=== PATIENT | female | born 2000 | race Two or more races ===

== ENCOUNTER 2024-09-01 12:35 | Outpatient (AMB) | payer OTHER, SELFPAY ==
[2024-09-01 12:40] VITALS: BP 126/76; PULSE 60; BMI 42.7
--- NOTE | 2024-09-01 12:40 | A.OFFVIS_ITS ---
Vital Signs 09/01/24 12:40 Height 5 ft 2 in Weight 233 lb 7.512 oz BMI 42.7 BP 126/76 Blood Pressure Location Lt brachial Position Sitting Pulse 60 Pulse Source Pulse Oximeter Intake Visit Reasons: Arthritis/LM Intake Note: Patient presents for follow up on RA, she states she would like to speak about jaw tightening feeling as if it's locked, and ear aches. Patient would like Enbrel refill. Allergies No Known Allergies Allergy (Verified 09/01/24 12:45) HPI HPI Arthritis/LM: Details: History of TRUDY previously in remission on Enbrel. She has been out of prescription for at least a month. She has had increased joint pains. She is concerned in the last couple of weeks she has noted that she has lost her overbite and there has been a shift in her jaw. She is experiencing pain at the TMJs radiating to her ears. She is able to eat without difficulty. She also has been hearing clicking from her jaw. No other joints are swollen. No recent infections. [facility] Medical History (Updated 09/01/24 @ 13:25 by Jonas Davenport MD) Rheumatoid arthritis Anxiety Surgical History (Updated 09/01/24 @ 12:55 by Antionette Figueroa CMA) No pertinent past surgical history Family History (Updated 09/01/24 @ 12:52 by Antionette Figueroa CMA) Mother Hypertension Diabetes Acute anxiety Review of Systems Const All systems reviewed & are unremarkable except as noted in HPI and below Physical Exam Vital Signs: Last Vital Signs Pulse 60 09/01/24 12:40 BP 126/76 09/01/24 12:40 BMI result Body Mass Index 42.7 Const Other: General: Comfortable CVS: RRR Respiratory: clear to auscultation bilaterally. Good respiratory effort Skin: No lesions seen MSK: Tender to palpate bilateral TMJs without fullness appreciated. No warmth. When patient smiles there is a shift in her jaw with deviation to the right. No synovitis on exam. No tender joints. Good range of motion of upper extremities and lower extremities. Assessment & Plan Assessment & Plan (1) TRUDY (juvenile idiopathic arthritis): Comment: Previously in clinical remission on Enbrel. She has been experiencing worsening bilateral jaw pain with concern for TMJ dislocation based on exam. Since she has been off of DMARD therapy for a month, we will need to consider TMJ arthritis contributing to her symptoms. She agreed to obtaining MRI bilateral TMJs for further evaluation as it will dictate next steps in management of her TMJ pain. Code(s): M08.80 - Other juvenile arthritis, unspecified site Category: Medical Plan: MR bilateral TMJs without contrast Labs for disease and drug monitoring on high-risk medication ordered After lab results are back, we will send prescription for Enbrel to initially to [facility] pharmacy for [place]. she has been previously receiving her Enbrel from [facility] specialty pharmacy (2) Other termite renewal inspector (current) drug therapy: Code(s): Z79.899 - Other termite renewal inspector (current) drug therapy Category: Medical Plan: See above (3) TMJ (dislocation of temporomandibular joint): Comment: Acute onset. Coincidentally she has been off of Enbrel for a month. I am concerned of possible TMJ dislocation based on exam versus TMJ inflammatory arthritis off of DMARD therapy contributing to her symptoms. Code(s): S03.00XA - Dislocation of jaw, unspecified side, initial encounter Category: Medical Plan: MR TMJs bilateral without contrast ordered Orders: Orders Alanine Aminotransferase Today M08.80 - Other juvenile arthritis, unspecified site, Z79.899 - Other snf (current) drug therapy Aspartate Amino Transferase Today M08.80 - Other juvenile arthritis, unspecified site, Z79.899 - Other termite renewal inspector (current) drug therapy Erythrocyte Sedimentation Rate Today M08.80 - Other juvenile arthritis, unspecified site, Z79.899 - Other termite renewal inspector (current) drug therapy Hepatitis B,C Profile Today M08.80 - Other juvenile arthritis, unspecified site, Z79.899 - Other termite renewal inspector (current) drug therapy T Spot TB Today M08.80 - Other juvenile arthritis, unspecified site, Z79.899 - Other snf (current) drug therapy MR TMJ wo con Today M08.80 - Other juvenile arthritis, unspecified site, S03 .00XA - Dislocation of jaw, unspecified side, initial encounter Creatinine Today M08.80 - Other juvenile arthritis, unspecified site, Z79.899 - Other termite renewal inspector (current) drug therapy Complete Blood Count Auto Diff Today M08.80 - Other juvenile arthritis, unspecified site, Z79.899 - Other snf (current) drug therapy Cyclic Citrullinated Peptide Today M08.80 - Other juvenile arthritis, unspecified site, Z79.899 - Other termite renewal inspector (current) drug therapy Rheumatoid Factor Today M08.80 - Other juvenile arthritis, unspecified site, Z79.899 - Other termite renewal inspector (current) drug therapy WALDEMAR Reflex Titer and Pattern Today M08.80 - Other juvenile arthritis, unspecified site, Z79.899 - Other snf (current) drug therapy Coding Level of Care Code Est Pt Level 4 (94198) Complex EM visit Add On G2211 Diagnoses TRUDY (juvenile idiopathic arthritis) M08.80 Other termite renewal inspector (current) drug therapy Z79.899 TMJ (dislocation of temporomandibular joint) S03.00XA
== END 2024-09-01 13:25 | disposition home or self-care (01) ==
LOC: HO.RHES 12:35
PROVIDERS: Visit Provider Internal Medicine Rheumatology
DX: M08.80 Other juvenile arthritis, unspecified site (principal); Z79.899 Other long term (current) drug therapy; S03.00XA Dislocation of jaw, unspecified side, initial encounter
CPT/HCPCS: 99214

== ENCOUNTER → 2024-09-01 12:35 | Outpatient (BNVA) | payer MEDICAID, SELFPAY | PROVIDERS: Visit Provider Internal Medicine Rheumatology | DX: M08.80 Other juvenile arthritis, unspecified site (principal); S03.00XA Dislocation of jaw, unspecified side, initial encounter; X58.XXXA Exposure to other specified factors, initial encounter; Y93.9 Activity, unspecified; Y92.9 Unspecified place or not applicable; Y99.9 Unspecified external cause status; Z79.899 Other long term (current) drug therapy | CPT/HCPCS: 99212 ==

== ENCOUNTER 2024-09-05 15:22 | Outpatient (REF) | payer OTHER, SELFPAY ==
[2024-09-05 15:54] LABS: MANUAL DIFF FLAG NO
[2024-09-05 16:53] LABS: Basophils Percent Auto 0.6 % (0-2); Eosinophils Absolute Auto 0.1 X10*3/uL (0.0-0.4); Eosinophils Percent Auto 2.1 % (0-4); Hematocrit 31.7 % (37.0-47.0); Imm Gran Abs Auto 0.02 X10*3/uL (0.00-0.03); Imm Gran Pct Auto 0.4 % (0.0-0.4); Lymphocytes Absolute Auto 1.8 X10*3/uL (1.2-4.9); Lymphocytes Percent Auto 34.1 % (20-40); Mean Corpuscular HGB Conc 31.5 g/dl (31.0-35.0); Mean Corpuscular Hemoglobin 25.6 pg (27.0-33.0); Mean Corpuscular Volume 81.1 fL (80.0-98.0); Mean Platelet Volume 9.5 fL (9.4-12.3); Monocytes Absolute Auto 0.5 X10*3/uL (0.1-1.2); Neutrophils Absolute Auto 2.8 x10*3/uL (2.0-8.3); Neutrophils Percent Auto 53.8 % (45-73); Platelet Count 365 X10*3/uL (160-400); Red Blood Count 3.91 X10*6/uL (4.20-5.50); Red Cell Distribution Width 13.9 % (11.0-16.0); White Blood Count 5.3 X10*3/uL (4.8-10.8)
[2024-09-05 17:21] LABS: Rheumatoid Factor 45.2 IU/mL (<15.0)
[2024-09-05 17:34] LABS: Alanine Aminotransferase 19 U/L (0-31); Aspartate Amino Transferase 19 U/L (5-31); Estimated Glomerular Filt Rate > 60
[2024-09-05 17:44] LABS: Erythrocyte Sedimentation Rate 19 MM/HR (0-20)
[2024-09-06 08:40] LABS: HBc Num1 0.07 S/CO (0.00-0.79); HBsAGNum1 0.52 S/CO (0.00-0.99); Hepatitis B Core Antibody Nonreactive (Nonreactive); Hepatitis B Surface Antigen Negative (Negative); ~Hepatitis C Antibody Nonreactive (Nonreactive)
[2024-09-06 13:26] LABS: HBS Num2 11.01 mIU/mL (0-7.99); ~Hepatitis B Surface Antibody GRAYZONE (Nonreactive)
[2024-09-08 03:48] LABS: TS Negative Control Passed; TS Panel A 1; TS Panel B 0; TS Positive Control Passed; TSpotTB Negative (Negative)
[2024-09-08 15:03] LABS: Anti Nuclear Antibody Pattern Nuclear, Speckled; Anti Nuclear Antibody Screen POSITIVE (NEGATIVE)
[2024-09-08 16:23] LABS: Cyclic Citrullinated Peptide >250 UNITS
== END 2024-09-05 15:23 | disposition home or self-care (01) ==
LOC: HO.LAB 15:22
PROVIDERS: Visit Provider Internal Medicine Rheumatology
DX: M08.80 Other juvenile arthritis, unspecified site (principal); Z79.899 Other long term (current) drug therapy
CPT/HCPCS: 36415; 82565; 84450; 84460; 85025; 85652; 86038; 86039; 86200; 86431; 86481; 86704; 86706; 86803; 87340

== ENCOUNTER 2025-01-04 14:28 | Outpatient (REF) | payer OTHER, SELFPAY ==
--- OUTSIDE RECORDS SUMMARY | 2025-01-04 17:13 | XMS_ITS | Clinical Summary ---
Author Organization [facility] Address [address] [place] [address] Care Team Providers Care Gas Leak Inspector Helper Name Role Phone Arnoldo Sweeney MD Primary Care Provider [phone] Source Comments PLEASE NOTE, if this patient [...] 50 mg/mL (1 mL) injectionIndicat ions:Juvenile arthritis ([facility]) INJECT 1 ML INTO THE SKIN ONCE A WEEK 4 mL 2 1 Active melatonin 10 mg capIndications:P sychophysiologic al insomnia TAKE 1 TABLET BY MOUTH NIGHTLY AT BEDTIME NEEDED (SLEEP) 30 Capsule 5 2 Active Active Problems Problem Noted Date Diagnosed Date Seasonal allergic rhinitis 01/28/2017 Rheumatoid arthritis involving multiple sites ([facility]) 01/28/2017 Anxiety and depression 01/28/2017 Social History [...] of Treatment Not on file Insurance [facility] Care Teams Gas Leak Inspector Helper Relationship Specialty Start Date End Date Arnoldo Sweeney MD [facility] [place] [address] PCP - General Family Medicine, Physician 11/26/22
--- OUTSIDE RECORDS SUMMARY | 2025-01-04 17:13 | XMS_ITS | Clinical Summary ---
Author Organization [facility] ity Address [address] [place] [address] Care Team Providers Care Inside Account Representative Name Role Phone Patria Griffin MD Primary Care Provider [phone] Surgical History Surgery Date Site/Laterality Comments OTHER SURGICAL HISTORY PROCEDURE: DENIES PREVIOUS SURGERY Medical History Medical History Date Comments JRA (juvenile rheumatoid art hritis) ([facility]) 2010 DX:JRA (juvenile rheumatoid arthritis) ([facility]); COMMENT: on med H/O rheumatoid arthritis 2011 [...] and 18 administered; COMMENT: series completed at [facility] pediatric[facility], sent to scanning Family History [...] RESULTING AGENCY - 03/19/2023 2:21 PM EDT [id number] THINPREP PAP: ATYPICAL SQUAMOUS CELLS OF UNDETERMINED [...] Recently Relevant to Health Maintenance Care Teams Inside Account Representative Relationship Specialty Start Date End Date Patria Griffin MD PCP - General 03/08/24
[2025-01-04 18:17] LABS: MANUAL DIFF FLAG NO
[2025-01-04 18:30] LABS: Basophils Absolute Auto 0.1 X10*3/uL (0.0-0.2); Basophils Percent Auto 0.7 % (0-2); Eosinophils Absolute Auto 0.2 X10*3/uL (0.0-0.4); Eosinophils Percent Auto 2.1 % (0-4); Hematocrit 31.6 % (37.0-47.0); Hemoglobin 9.9 g/dl (12.0-16.0); Imm Gran Abs Auto 0.02 X10*3/uL (0.00-0.03); Imm Gran Pct Auto 0.3 % (0.0-0.4); Lymphocytes Absolute Auto 2.5 X10*3/uL (1.2-4.9); Lymphocytes Percent Auto 34.8 % (20-40); Mean Corpuscular HGB Conc 31.3 g/dl (31.0-35.0); Mean Corpuscular Volume 73.5 fL (80.0-98.0); Mean Platelet Volume 9.4 fL (9.4-12.3); Monocytes Absolute Auto 0.7 X10*3/uL (0.1-1.2); Monocytes Percent Auto 9.6 % (2-11); Neutrophils Absolute Auto 3.7 x10*3/uL (2.0-8.3); Neutrophils Percent Auto 52.5 % (45-73); Platelet Count 397 X10*3/uL (160-400); Red Cell Distribution Width 16.4 % (11.0-16.0); White Blood Count 7.1 X10*3/uL (4.8-10.8)
[2025-01-04 18:44] LABS: Alanine Aminotransferase 29 U/L (0-31); Aspartate Amino Transferase 24 U/L (5-31); Estimated Glomerular Filt Rate > 60
[2025-01-04 19:08] LABS: Erythrocyte Sedimentation Rate 25 MM/HR (0-20)
[2025-01-04 22:24] LABS: Iron 35 mcg/dL (30-160); Percent Iron Saturation 11 % (15-50); Total Iron Binding Capacity 333 mcg/dL (228-428); Unsaturated Iron Binding 298 ug/dL
[2025-01-04 22:38] LABS: Ferritin 9 ng/mL (10-122)
== END 2025-01-04 14:29 | disposition home or self-care (01) ==
LOC: HO.HKASLDS 14:28
PROVIDERS: PCP Physician Assistant Medical; Visit Provider Internal Medicine Rheumatology
DX: M08.80 Other juvenile arthritis, unspecified site (principal); Z79.60 Long term (current) use of unspecified immunomodulators and immunosuppressants; Z79.899 Other long term (current) drug therapy; R10.31 Right lower quadrant pain
CPT/HCPCS: 36415; 82565; 82728; 83540; 84450; 84460; 85025; 85652; 86140; 99212

== ENCOUNTER 2025-01-04 14:28 | Outpatient (AMB) | payer OTHER, SELFPAY ==
--- NOTE | 2025-01-04 14:09 | MHC.OFFVIS ---
Vital Signs 01/04/25 14:30 Height 5 ft 2 in Weight 230 lb 2.601 oz BMI 42.1 BP 120/80 Blood Pressure Location Lt brachial Position Sitting Pulse 85 Pulse Source Pulse Oximeter Pulse Oximetry (%) 99 Oxygen Delivery Method Room Air Intake Visit Reasons: follow up Intake Note: Patient presents for follow up on RA, Allergies No Known Allergies Allergy (Verified 09/01/24 12:45) HPI HPI follow up: Details: She continues to have pain in her jaw intermittently. There is dislocation sometimes but it is not as bad as it used to be. Pain in joints in her hands occur a few days before Enbrel is due. It resolves with Enbrel. She has not in a few weeks because she has not had prescription refill. 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 [facility] Medical History Rheumatoid arthritis Anxiety Surgical History No pertinent past surgical history Family History Mother Hypertension Diabetes Acute anxiety Review of Systems Const All systems reviewed & are unremarkable except as noted in HPI and below Physical Exam Vital Signs: Last Vital Signs Pulse 85 01/04/25 14:30 BP 120/80 01/04/25 14:30 Pulse Ox 99 01/04/25 14:30 Oxygen Delivery Method Room Air 01/04/25 14:30 BMI result Body Mass Index 42.1 Const Other: General: Comfortable CVS: RRR Respiratory: clear to auscultation bilaterally. Good respiratory effort Skin: No lesions seen Abdomen: She has tenderness to palpate lower abdomen along right pelvic wing. No masses palpated. MSK: Nontender to palpate bilateral TMJs without fullness appreciated. No warmth. No deviation of jaw when she smiles. No synovitis on exam. No tender joints. Normal range of motion of upper extremities and lower extremities. Assessment & Plan Assessment & Plan (1) TRUDY (juvenile idiopathic arthritis): Comment: She has reduced jaw pain, now intermittent but continues to have dislocation of her jaw at times. She did not get MRI because after last visit there was a period where she did not have any pain or dislocation. Enbrel is not lasting the full week. If MRI reveals active inflammatory arthritis affecting the TMJ, I will need to discuss changing DMARD therapy with patient. Code(s): M08.80 - Other juvenile arthritis, unspecified site Category: Medical Plan: MR bilateral TMJs without contrast Labs for disease and drug monitoring on high-risk medication ordered Continue Enbrel subcutaneous injection weekly Return to clinic in 3 months (2) Other halfway (current) drug therapy: Code(s): Z79.899 - Other termite treater (current) drug therapy Category: Medical Plan: See above (3) Right lower quadrant abdominal pain: Comment: Likely due to muscle strain. We discussed conservative management. Code(s): R10.31 - Right lower quadrant pain Category: Medical Plan: I recommended a home stretching program Return to clinic in 3 months Orders: Orders Alanine Aminotransferase Today Z79.60 - [facility] (current) use of unspecified immunomodulators and immunosuppressants Complete Blood Count Auto Diff Today Z79.60 - terminal operations manager (current) use of unspecified immunomodulators and immunosuppressants C Reactive Protein Today Z79.899 - Other termite treater (current) drug therapy Creatinine Today Z79.60 - terminal operations manager (current) use of unspecified immunomodulators and immunosuppressants Aspartate Amino Transferase Today Z79.60 - terminal operations manager (current) use of unspecified immunomodulators and immunosuppressants Erythrocyte Sedimentation Rate Today Z79.899 - Other termite treater (current) drug therapy Medications: Refilled etanercept (Enbrel SureClick) 50 mg subcut QWEEK 4 mL 2RF Coding Level of Care Code Est Pt Level 4 (73935) Complex EM visit Add On G2211 Diagnoses TRUDY (juvenile idiopathic arthritis) M08.80 Other termite treater (current) drug therapy Z79.899 Right lower quadrant abdominal pain R10.31
[2025-01-04 14:30] VITALS: BP 120/80; PULSE 85; O2SAT 99; BMI 42.1
--- OUTSIDE RECORDS SUMMARY | 2025-01-04 16:43 | XMS_ITS | Clinical Summary ---
Author Organization [facility] Address [address] [place] [address] Care Team Providers Care Recyclable Materials Collector Name Role Phone Arnoldo Sweeney MD Primary Care Provider [phone] Source Comments PLEASE NOTE, if this patient is a minor, it may be UNLAWFUL to discuss sensitive information that is contained in these records (such as FAMILY PLANNING, MENTAL HEALTH or SUBSTANCE ABUSE) with the minor patient's parent or other person without the patient's specific authorization.[facility] Allergies No known active allergies Medications sodium chloride 0.65 % nasal solutionIndicati ons:Cold Place 2 Sprays into the nostril(s) as needed for nasal congestion 50 mL 1 9 Active acyclovir (ZOVIRAX) 800 mg tabletIndication s:Cold sore Take 1 Tab by mouth 3 (three) times daily 15 Tab 3 9 Active oseltamivir (TAMIFLU) 75 mg capsuleIndicatio ns:Fever, unspecified fever cause Take 1 Cap by mouth 2 (two) times daily 10 Cap 9 Active ibuprofen (ADVIL,MOTRIN) 800 mg tabletIndication s:Influenza A Take 1 Tab by mouth 3 (three) times daily as needed for fever, headaches or pain 90 Tab 9 Active penicillin V potassium (VEETID) 500 mg tabletIndication s:Strep throat Take 1 Tab by mouth 3 (three) times daily 15 Tab 9 Active amoxicillin-pot clavulanate (AUGMENTIN) 875-125 mg per tabletIndication s:Strep pharyngitis Take 1 Tab by mouth 2 (two) times daily 20 Tab 9 Active predniSONE (DELTASONE) 20 mg tabletIndication s:Swollen tonsil Take 2 Tabs by mouth every morning 6 Tab 9 Active triamcinolone acetonide (KENALOG) 0.025 % creamIndications :Eczematous dermatitis of upper and lower eyelids of both eyes Apply topically 2 (two) times daily 15 g 1 Active cetirizine (ZYRTEC) 10 mg tabletIndication s:Eczematous dermatitis of upper and lower eyelids of both eyes Take 1 Tablet by mouth every morning 30 Tablet 1 Active ENBREL SURECLICK 50 mg/mL (1 mL) injectionIndicat ions:Juvenile arthritis ([facility]) INJECT 1 ML INTO THE SKIN ONCE A WEEK 4 mL 2 1 Active melatonin 10 mg capIndications:P sychophysiologic al insomnia TAKE 1 TABLET BY MOUTH NIGHTLY AT BEDTIME NEEDED (SLEEP) 30 Capsule 5 2 Active Active Problems Problem Noted Date Diagnosed Date Seasonal allergic rhinitis 01/28/2017 Rheumatoid arthritis involving multiple sites ([facility]) 01/28/2017 Anxiety and depression 01/28/2017 Social History Tobacco Use Types Packs/Day Years Used Date Smoking Tobacco: Never Smokeless Tobacco: Never Alcohol Use Standard Drinks/Week Comments No 0 (1 standard drink = 0.6 oz pur e alcohol) Social Connections Answer Date Recorded Connectedness 0 06/09/2024 Financial Resource Strain Answer Date R ecorded Financial Resource Strain 0 2018 Stress Answer Date Recorded Stress 0 05/22/2019 Physical Activity Answer Date Recorded Physical Activity 0 05/22/2019 Food Insecurity Answer Date Recorded Food 0 06/23/2024 Transportation Needs Answer Date Record ed Transportation 0 05/22/2019 Housing Stability Answer Date Recorded Housing 0 05/22/2019 Safety and Environment Answer Date Reyes rded Safety 0 05/22/2019 Utilities Answer Date Recorded Utilities 0 05/22/2019 Employment Answer Date Recorded Stress 0 06/09/2024 Comments No Sex and Gender Information Value Date Recorded Sex Assigned at Female 10/05/2018 11:48 AM PST Legal Sex Female 10:41 AM PDT Gender Identity Female 10/05/2018 11:48 AM PST Sexual Orientation Straight 10/05/2018 11 :48 AM PST Last Filed Vital Signs Vital Sign Reading Time Taken Comments Blood Pressure 127/76 05/08/2021 3:34 PM EDT Pulse 88 05/08/2021 3:34 PM EDT Temperature 37.4 ??C (99.3 ??F) 05/08/2021 3:34 PM ED T Respiratory Rate 16 05/08/2021 3:34 PM EDT Oxygen Saturation 98% 01/04/2019 2:51 PM EDT Inhaled Oxygen Concentration - - Weight 97.5 kg (215 lb) 05/08/2021 3:34 PM EDT Height 157.5 cm (5' 2 ) 05/08/2021 3:34 PM EDT Body Mass Index 39.32 05/08/2021 3:34 PM EDT Plan of Treatment Not on file Insurance [facility] Care Teams Recyclable Materials Collector Relationship Specialty Start Date End Date Arnoldo Sweeney MD [facility] [place] [address] PCP - General Family Medicine, Physician 11/26/22
--- OUTSIDE RECORDS SUMMARY | 2025-01-04 16:43 | XMS_ITS | Clinical Summary ---
Author Organization [employer] [facility] ity Address [address] [place] [address] Care Team Providers Care Delphi Programmer Name Role Phone Patria Griffin MD Primary Care Provider [phone] Surgical History Surgery Date Site/Laterality Comments OTHER SURGICAL HISTORY PROCEDURE: DENIES PREVIOUS SURGERY Medical History Medical History Date Comments JRA (juvenile rheumatoid art hritis) ([facility]) 2010 DX:JRA (juvenile rheumatoid arthritis) ([facility]); COMMENT: on med H/O rheumatoid arthritis 2011 DX:H/O rheumatoid arthritis; COMMENT: Hands, ankles and knees; enbrel injections weekly Recurrent vaginitis DX:Recurrent vaginitis High risk sexual behavior DX:Hig h risk sexual behavior; COMMENT: pt continues to have unprotected intercourse , no control, multiple plan b use Obese 08/13/2023 DX:Obese; COMMEN T: bmi 45 Seasonal allergies DX:Seasonal a llergies Anemia in , third trimester 01/12/2020 DX:Anemia in , third trimester Abnormal Pap smear of cervix 08/13/2023 DX: Abnormal Pap smear of cervix Type O blood, Rh positive 2018 DX:Typ e O blood, Rh positive Vaccine for human papilloma virus (HPV) types 6, 11, 16, and 18 administered DX:Vaccine for human papillo ma virus (HPV) types 6, 11, 16, and 18 administered; COMMENT: series completed at [facility] pediatric[facility], sent to scanning Family History Medical History Relation Name Comments Mental illness Father Arthritis Maternal Grandfather Diabetes Maternal Grandfather Alcohol/Drug Maternal Grandmother Depression Mother on meds/not in contact with mother; was in foster care since 11 yo Hypertension Mother on med Other: cancer Mother cervical cance r Breast cancer Neg Hx Relation Name Status Comments Father Alive Maternal Grandfather Alive Maternal Grandmother Mother Alive Social History Tobacco Use Types Packs/Day Years Used Date Smoking Tobacco: Never Smokeless Tobacco: Never Alcohol Use Standard Drinks/Week Comments No 0 (1 standard drink = 0.6 oz pur e alcohol) Comments Unknown Sex and Gender Information Value Date Recorded Sex Assigned at Not on file Legal Sex Female 4:57 AM EST Gender Identity Not on file Sexual Orientation Not on file Obstetrics History Last Filed Vital Signs Vital Sign Reading Time Taken Comments Blood Pressure 114/76 04/20/2024 9:52 AM EDT Pulse 74 04/20/2024 9:52 AM EDT Temperature - - Respiratory Rate - - Oxygen Saturation - - Inhaled Oxygen Concentration - - Weight 106 kg (234 lb) 04/20/2024 9:52 AM EDT Height 154.9 cm (5' 1 ) 04/20/2024 9:52 AM EDT Body Mass Index 44.21 04/20/2024 9:52 AM EDT Plan of Treatment Health Maintenance Due Date Last Done Comments Meningococcal B Vaccine (2 of 2 - Trumenba SCDM 2-dose series) 2014 12/13/2010 Cholesterol Screening (Lipid Panel) 08/31/2022 Depression Screening 08/31/2022 HIV Screening 08/31/2022 Hepatitis C Screening 08/31/2022 Social Influencers of Health Screening 08/31/2022 Hypertension/CHF/CAD Annual BMP Blood Test 04/22/2024 COVID-19 Vaccine ( season) 2024 Influenza Vaccine (#1) 2024 Cervical Cancer Screening: Pap Smear 03/06/2026 03/06/2023, 09/29/2019 DTaP,Tdap,and Td Vaccines (9 - Td or Tdap) 07/10/2033 07/10/2023, 01/12/2020, 12/13/2010, Additional history exists Hepatitis B Vaccines Completed 05/27/1999, 03/27/1999, 01/25/1999 HIB Vaccines Completed 01/26/2000, 04/30, 03/27/1999, Additional history exists IPV Vaccines Completed 10/28/2002, 12/29, 05/27/1999, Additional history exists MMR Vaccines Completed 10/28/2002, 11/25/1999 Varicella Vaccines Completed 12/13/2010, 11/25/1999 HPV Vaccines Completed 02/27/2014, 08/28, 07/29/2012 Hepatitis A Vaccines Aged Out No long er eligible based on patient's age to complete this topic Meningococcal ACWY Vaccine Aged Out N o longer eligible based on patient's age to complete this topic Pneumococcal Vaccine: Pediatrics (0 to 5 Years) and At-Risk Patients (6 to 64 Years) Aged Out No longer eligible based on patient's age to complete this topic RSV Immunization Patients Under 20 months Aged Out No longer eligible based on patient's age to complete this topic Procedures Procedure Name Priority Date/Time Associated Diagnosis Comments PAP SMEAR Routine 03/06/2023 from Last 3 Months or Most Recently Relevant to Health Maintenance Results * Pap smear (03/06/2023) 03/06/2023 Narrative HISTORICAL TESTING LAB RESULTING AGENCY - 03/19/2023 2:21 PM EDT [id number] THINPREP PAP: ATYPICAL SQUAMOUS CELLS OF UNDETERMINED SIGNIFICANCE (ASCUS) . ABUNDANT RED BLOOD CELLS ARE PRESENT. NOTE: ??ADEQUACY DEEMED SATISFACTORY AFTER REPROCESSING WITH ACID WASH PROCEDURE. DERIAN SAM(ASCP) (CASE SCREENED 03 18 2023) SB VAUGHAN M.D. , PATHOLOGIST (CASE ELECTRONICALLY SIGNED 03 18 2023) RESULT OF APTIMA HIGH RISK HPV ASSAY: HIGH RISK HPV: ??NEGATIVE (SEROTYPES 16,18,31,33,35,39,45,51,52,56,58,59,66,68) COMPLETED ON 2023-03-19 ADEQUACY: SATISFACTORY ENDOCERVICAL/TRANSFORMATION ZONE COMPONENT PRESENT. SOURCE: THINPREP PAP HPV IF ASCUS, CERVICAL CLINICAL INFORMATION: HPV IF DIAGNOSIS OF ASCUS. HORMONES, LMP 03/02/23, [Z01.419] Caron Rodrigues CNM LAB CYTOLOGY ORDERABLES Edite d Result - Final HISTORICAL TESTING LAB RESULTING AGENCY from Last 3 Months or Most Recently Relevant to Health Maintenance Care Teams Delphi Programmer Relationship Specialty Start Date End Date Patria Griffin MD PCP - General 03/08/24
== END 2025-01-04 15:03 | disposition home or self-care (01) ==
LOC: HO.RHES 14:28
PROVIDERS: PCP Physician Assistant Medical; Visit Provider Internal Medicine Rheumatology
DX: M08.80 Other juvenile arthritis, unspecified site (principal); Z79.899 Other long term (current) drug therapy; R10.31 Right lower quadrant pain
CPT/HCPCS: 99214; G2211

== ENCOUNTER 2025-05-31 09:24 | Outpatient (AMB) | payer OTHER, SELFPAY ==
--- NOTE | 2025-05-31 09:39 | A.OFFVISPN_ITS ---
Intake Vital Signs 05/31/25 09:57 Height 5 ft 2 in Weight 234 lb 9.149 oz BMI 42.9 BP 120/80 Blood Pressure Location Rt brachial Position Sitting Pulse 78 Pulse Source Pulse Oximeter Pulse Oximetry (%) 99 Oxygen Delivery Method Room Air Oxygen Flow Rate 206.4 Intake Visit Reasons: 3 months Allergies No Known Allergies Allergy (Verified 05/31/25 09:58) PFSH Medical History Rheumatoid arthritis Anxiety Surgical History No pertinent past surgical history Family History Mother Hypertension Diabetes Acute anxiety Coding Level of Care Code Left Without Being Seen Diagnoses Other senior living (current) drug therapy Z79.899 Comment Note entered in error. Assessment & Plan Assessment & Plan (1) Other senior living (current) drug therapy: Code(s): Z79.899 - Other ferry terminal agent (current) drug therapy Category: Medical Plan Note entered in error Orders: Orders PT Evaluation and Treatment Today M08.80 - Other juvenile arthritis, unspecified site, M25.551 - Pain in right hip, M25.552 - Pain in left hip XR hand LT min 3V Today M08.80 - Other juvenile arthritis, unspecified site XR hand RT min 3V Today M08.80 - Other juvenile arthritis, unspecified site NE electromyogram (EMG) Today R20.2 - Paresthesia of skin NE nerve conduction velocity Today R20.2 - Paresthesia of skin Medications: Refilled etanercept (Enbrel SureRuba) 50 mg subcut QWEEK 4 mL 5RF
--- NOTE | 2025-05-31 09:39 | A.OFFVIS_ITS ---
Vital Signs 05/31/25 09:57 Height 5 ft 2 in Weight 234 lb 9.149 oz BMI 42.9 BP 120/80 Blood Pressure Location Rt brachial Position Sitting Pulse 78 Pulse Source Pulse Oximeter Pulse Oximetry (%) 99 Oxygen Delivery Method Room Air Oxygen Flow Rate 206.4 Intake Visit Reasons: 3 months Allergies No Known Allergies Allergy (Verified 05/31/25 09:58) HPI HPI 3 months: Details: Out of enbrel for over a month. R foot is turning. She pain in hands, knees and ankles. MS hours. She did not have morning stiffness on enbrel. No infections. She continues to have bilateral hip discomfort with external rotation of her hip after some time. 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 She is experiencing intermittent right arm paraesthesia from elbow to hands. She feels that muscles in her forearm is fatigued. [facility], [facility] Medical History Rheumatoid arthritis Anxiety Surgical History No pertinent past surgical history Family History Mother Hypertension Diabetes Acute anxiety Physical Exam Vital Signs: Last Vital Signs Pulse 78 05/31/25 09:57 BP 120/80 05/31/25 09:57 Pulse Ox 99 05/31/25 09:57 Oxygen Delivery Method Room Air 05/31/25 09:57 Oxygen Flow Rate 206.4 05/31/25 09:57 BMI result Body Mass Index 42.9 Const Other: General: Comfortable CVS: RRR Respiratory: clear to auscultation bilaterally. Good respiratory effort Skin: No lesions seen Abdomen: She has tenderness to palpate lower abdomen along right pelvic wing. No masses palpated. MSK: Tender bilateral 4th and 5th PIP. She has mild synovitis right 4th and 5th PIP. Normal range of motion of upper extremities and lower extremities. Assessment & Plan Assessment & Plan (1) TRUDY (juvenile idiopathic arthritis): Comment: Inflammatory arthritis is not controlled off of Enbrel. Rheumatology history: Seropositive (anti CCP antibody, rheumatoid factor), erosive left 4th PIP (2020 x-ray). Methotrexate . Enbrel 2011 to present. Code(s): M08.80 - Other juvenile arthritis, unspecified site Category: Medical Plan: Duplicate note (2) Hip pain, bilateral: Comment: Positional. Likely due to muscular strain. Code(s): M25.551 - Pain in right hip; M25.552 - Pain in left hip Category: Medical Plan: Duplicate note (3) Arm paresthesia, right: Code(s): R20.2 - Paresthesia of skin Category: Medical Plan: Duplicate note Orders: Orders PT Evaluation and Treatment Today M08.80 - Other juvenile arthritis, unspecified site, M25.551 - Pain in right hip, M25.552 - Pain in left hip XR hand LT min 3V Today M08.80 - Other juvenile arthritis, unspecified site XR hand RT min 3V Today M08.80 - Other juvenile arthritis, unspecified site NE electromyogram (EMG) Today R20.2 - Paresthesia of skin NE nerve conduction velocity Today R20.2 - Paresthesia of skin Medications: Refilled etanercept (Enbrel SureClick) 50 mg subcut QWEEK 4 mL 5RF Coding Level of Care Code Est Pt Level 4 (52509) Complex EM visit Add On G2211 Diagnoses TRUDY (juvenile idiopathic arthritis) M08.80 Hip pain, bilateral M25.551; M25.552 Arm paresthesia, right R20.2 Comment Duplicate note
--- NOTE | 2025-05-31 09:56 | A.OFFVIS_ITS ---
Vital Signs 05/31/25 09:57 Height 5 ft 2 in Weight 234 lb 9.149 oz BMI 42.9 BP 120/80 Blood Pressure Location Rt brachial Position Sitting Pulse 78 Pulse Source Pulse Oximeter Pulse Oximetry (%) 99 Oxygen Delivery Method Room Air Oxygen Flow Rate 206.4 Intake Visit Reasons: 3 months Intake Note: Patient presents for a follow up. Allergies No Known Allergies Allergy (Verified 05/31/25 09:58) HPI HPI 3 months: Details: Out of enbrel for over a month. R foot is turning in ayoub when walking. She pain in hands, knees and ankles. MS hours. She did not have morning stiffness on enbrel. No infections. She continues to have bilateral hip discomfort with external rotation of her hip after some time. 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 She is experiencing intermittent right arm paraesthesia from elbow to hands. She feels that muscles in her forearm is fatigued. She had a visit with her dentist and reports that no intervention was done. Denies having TMJ pain. Sometimes she is able to move her jaw to trigger a click. Denies any pain when that occurs. [facility] Medical History Rheumatoid arthritis Anxiety Surgical History No pertinent past surgical history Family History Mother Hypertension Diabetes Acute anxiety Physical Exam Vital Signs: Last Vital Signs Pulse 78 05/31/25 09:57 BP 120/80 05/31/25 09:57 Pulse Ox 99 05/31/25 09:57 Oxygen Delivery Method Room Air 05/31/25 09:57 Oxygen Flow Rate 206.4 05/31/25 09:57 BMI result Body Mass Index 42.9 Const Other: General: Comfortable CVS: RRR Respiratory: clear to auscultation bilaterally. Good respiratory effort Skin: No lesions seen Abdomen: She has tenderness to palpate lower abdomen along right pelvic wing. No masses palpated. MSK: Tender bilateral 4th and 5th PIP. She has mild synovitis right 4th and 5th PIP. Normal range of motion of upper extremities and lower extremities. Assessment & Plan Assessment & Plan (1) TRUDY (juvenile idiopathic arthritis): Comment: Inflammatory arthritis is not controlled off of Enbrel. Rheumatology history: Seropositive (anti CCP antibody, rheumatoid factor), erosive left 4th PIP (2020 x-ray). Methotrexate . Enbrel 2011 to present. Code(s): M08.80 - Other juvenile arthritis, unspecified site Category: Medical Plan: Restart Enbrel. Educated patient the need for labs every 3 months when on Enbrell. She is aware that when she is out of her refills, to call office. Labs for disease and drug monitoring ordered this visit Follow up x-rays of bilateral hands ordered Return to clinic in 3 months (2) Hip pain, bilateral: Comment: Positional. Likely due to muscular strain. Code(s): M25.551 - Pain in right hip; M25.552 - Pain in left hip Category: Medical Plan: She agreed to PT for lower extremity strengthening Return to clinic in 3 months Orders: Orders PT Evaluation and Treatment Today M08.80 - Other juvenile arthritis, unspecified site, M25.551 - Pain in right hip, M25.552 - Pain in left hip XR hand LT min 3V Today M08.80 - Other juvenile arthritis, unspecified site XR hand RT min 3V Today M08.80 - Other juvenile arthritis, unspecified site NE electromyogram (EMG) Today R20.2 - Paresthesia of skin NE nerve conduction velocity Today R20.2 - Paresthesia of skin Medications: Refilled etanercept (Enbrel SureClick) 50 mg subcut QWEEK 4 mL 5RF Coding Level of Care Code Est Pt Level 4 (55281) Complex EM visit Add On G2211 Diagnoses TRUDY (juvenile idiopathic arthritis) M08.80 Hip pain, bilateral M25.551; M25.552
[2025-05-31 09:57] VITALS: BP 120/80; PULSE 78; O2SAT 99; BMI 42.9
--- OUTSIDE RECORDS SUMMARY | 2025-05-31 10:10 | XMS_ITS | Clinical Summary ---
Author Organization [facility] Address [address] [place] [address] Care Team Providers Care Stock Parts Inspector Name Role Phone Arnoldo Sweeney MD Primary Care Provider [phone] Source Comments PLEASE NOTE, if this patient [...] 50 mg/mL (1 mL) injectionIndicat ions:Juvenile arthritis ([facility]) INJECT 1 ML INTO THE SKIN ONCE A WEEK 4 mL 2 1 Active melatonin 10 mg capIndications:P sychophysiologic al insomnia TAKE 1 TABLET BY MOUTH NIGHTLY AT BEDTIME NEEDED (SLEEP) 30 Capsule 5 2 Active Active Problems Problem Noted Date Diagnosed Date Juvenile idiopathic arthritis ([facility]) Overview (01/20/2025): Polyarticular TRUDY, RF and CCP antibody positive 12/2024: Following Rheum. On Enbrel. MRI of jaw pending. F/u in 3 months. Asthma ([facility]) 01/20/2025 Seasonal allergic rhinitis 01/28/2017 Rheumatoid arthritis involvi ng multiple sites ([facility]) 01/28/2017 Anxiety and depression 01/28/2017 Social [...] 88 05/08/2021 3:34 PM EDT Temperature 37.4 C (99.3 F) 05/08/2021 3:34 PM EDT Respiratory Rate 16 05/08/2021 3:34 PM EDT Oxygen Saturation 98% 01/04/2019 2:51 PM EDT Inhaled Oxygen Concentration - - Weight 97.5 kg (215 lb) 05/08/2021 3:34 PM EDT Height 157.5 cm (5' 2 ) 05/08/2021 3:34 PM EDT Body Mass Index 39.32 05/08/2021 3:34 PM EDT Plan of Treatment Not on file Insurance [facility] Care Teams Stock Parts Inspector Relationship Specialty Start Date End Date Arnoldo Sweeney MD [address] [place] [id number] PCP - General Family Medicine, Physician 11/26/22
--- OUTSIDE RECORDS SUMMARY | 2025-05-31 10:10 | XMS_ITS | Clinical Summary ---
Author Organization [employer] [facility] ity Address [address] [place] [address] Care Team Providers Care Crystal Grower Name Role Phone Patria Griffin MD Primary Care Provider Unavail able Surgical History Surgery Date Site/Laterality Comments OTHER SURGICAL HISTORY PROCEDURE: DENIES PREVIOUS SURGERY Medical History Medical History Date Comments JRA (juvenile rheumatoid art hritis) ([facility] V24, CMS/HCC V28) 2010 DX:JRA (juvenile rheumatoid arthritis) ([facility]); COMMENT: on med H/O rheumatoid arthritis 2011 [...] and 18 administered; COMMENT: series completed at [facility], sent to scanning Family History Medical [...] 2014 12/13/2010 Cholesterol Screening (Lipid Panel) 08/31/2022 HIV Screening 08/31/2022 Hepatitis C Screening 08/31/2022 Social Influencers of Health Screening 08/31/2022 Depression Screening 09/28/2024 COVID-19 Vaccine ( season) 2025 Influenza Vaccine (#1) 2025 Cervical Cancer Screening: Pap Smear 03/06/2026 03/06/2023, [...] 5 Years) and At-Risk Patients (6 to 49 Years) Aged Out No longer eligible based [...] RESULTING AGENCY - 03/19/2023 2:21 PM EDT [id number] THINPREP PAP: ATYPICAL SQUAMOUS CELLS OF UNDETERMINED SIGNIFICANCE (ASCUS) . ABUNDANT RED BLOOD CELLS ARE PRESENT. NOTE: ADEQUACY DEEMED SATISFACTORY AFTER REPROCESSING WITH ACID WASH PROCEDURE. DERIAN SAM(ASCP) (CASE SCREENED 03 18 2023) SB VAUGHAN M.D. , PATHOLOGIST (CASE ELECTRONICALLY SIGNED 03 18 2023) RESULT OF APTIMA HIGH RISK HPV ASSAY: HIGH RISK HPV: NEGATIVE (SEROTYPES 16,18,31,33,35,39,45,51,52,56,58,59,66,68) COMPLETED ON 2023-03-19 ADEQUACY: SATISFACTORY ENDOCERVICAL/TRANSFORMATION ZONE COMPONENT PRESENT. SOURCE: THINPREP PAP HPV IF ASCUS, CERVICAL CLINICAL INFORMATION: HPV IF DIAGNOSIS OF ASCUS. HORMONES, LMP 03/02/23, [Z01.419] [facility] ORDERABLES Edite d Result - Final HISTORICAL TESTING LAB RESULTING AGENCY from Last 3 Months or Most Recently Relevant to Health Maintenance Care Teams Crystal Grower Relationship Specialty Start Date End Date Patria Griffin MD PCP - General 03/08/24
== END 2025-05-31 09:59 | disposition home or self-care (01) ==
LOC: HO.RHES 09:24
PROVIDERS: PCP Physician Assistant Medical; Visit Provider Internal Medicine Rheumatology
DX: M08.80 Other juvenile arthritis, unspecified site (principal); M25.551 Pain in right hip; M25.552 Pain in left hip; R20.2 Paresthesia of skin
CPT/HCPCS: 99214; G2211

== ENCOUNTER → 2025-05-31 09:24 | Outpatient (BNVA) | payer OTHER, SELFPAY | PROVIDERS: PCP Physician Assistant Medical; Visit Provider Internal Medicine Rheumatology | DX: M08.89 Other juvenile arthritis, multiple sites (principal); M25.551 Pain in right hip; M25.552 Pain in left hip; R20.2 Paresthesia of skin; Z79.899 Other long term (current) drug therapy | CPT/HCPCS: 99212 ==

== ENCOUNTER 2025-06-20 11:02 | Outpatient (REF) | payer OTHER, SELFPAY ==
[2025-06-20 13:39] LABS: MANUAL DIFF FLAG NO
[2025-06-20 13:42] LABS: Hematocrit 33.0 % (37.0-47.0); Hemoglobin 10.4 g/dl (12.0-16.0); Imm Gran Abs Auto 0.02 X10*3/uL (0.00-0.03); Imm Gran Pct Auto 0.4 % (0.0-0.4); Lymphocytes Absolute Auto 1.7 X10*3/uL (1.2-4.9); Mean Corpuscular HGB Conc 31.5 g/dl (31.0-35.0); Mean Corpuscular Hemoglobin 24.3 pg (27.0-33.0); Mean Corpuscular Volume 77.1 fL (80.0-98.0); NRBC Abs Auto 0.000 X10*3/uL (0.0-0.012); NRBC Pct Auto 0.0 /100WBC (0.0-0.2); Platelet Count 336 X10*3/uL (160-400); Red Blood Count 4.28 X10*6/uL (4.20-5.50); White Blood Count 5.3 X10*3/uL (4.8-10.8)
--- OUTSIDE RECORDS SUMMARY | 2025-06-20 13:44 | XMS_ITS | Clinical Summary ---
Author Organization [employer] [facility] ity Address [address] [place] [address] Care Team Providers Care Psychiatric Specialist Name Role Phone Patria Griffin MD Primary Care Provider [phone] Surgical History Surgery Date Site/Laterality Comments OTHER SURGICAL HISTORY PROCEDURE: DENIES PREVIOUS SURGERY Medical History Medical History Date Comments JRA (juvenile rheumatoid art hritis) ([facility] V24, [facility] V28) 2010 DX:JRA (juvenile rheumatoid arthritis) ([facility]); COMMENT: on med H/O rheumatoid arthritis 2011 [...] and 18 administered; COMMENT: series completed at [facility], sent to scanning Family History [...] RESULTING AGENCY - 03/19/2023 2:21 PM EDT [id number] THINPREP PAP: ATYPICAL SQUAMOUS CELLS OF UNDETERMINED [...] Recently Relevant to Health Maintenance Care Teams Psychiatric Specialist Relationship Specialty Start Date End Date Patria Griffin MD PCP - General 03/08/24
[2025-06-20 14:20] LABS: Alanine Aminotransferase 13 U/L (0-31); Aspartate Amino Transferase 21 U/L (5-31); Estimated Glomerular Filt Rate > 60; Iron 35 mcg/dL (30-160); Percent Iron Saturation 11 % (15-50); Total Iron Binding Capacity 318 mcg/dL (228-428); Unsaturated Iron Binding 283 ug/dL
[2025-06-20 14:50] LABS: Ferritin 8 ng/mL (10-122)
== END 2025-06-20 11:03 | disposition home or self-care (01) ==
LOC: HO.HKASLDS 11:02
PROVIDERS: Visit Provider Internal Medicine Rheumatology
DX: D50.9 Iron deficiency anemia, unspecified (principal); M08.80 Other juvenile arthritis, unspecified site; Z79.899 Other long term (current) drug therapy
CPT/HCPCS: 36415; 82565; 82728; 83540; 84450; 84460; 85025; 85652; 86140

== ENCOUNTER 2025-08-10 11:22 | Outpatient (RCR) | payer OTHER, SELFPAY ==
--- NOTE | 2025-08-10 12:13 | MHC.PT.EP ---
[facility] [place] Office [place] [facility] [place] Office [address] [phone] F: [phone] F: [phone] F: [phone] F: [phone] Physical Therapy Plan of Care Date of Evaluation: 08/10/25 Date of Surgery: Diagnosis: Pain in R hip Pain in L hip Juvenile idiopathic arthritis Assessment: 24 y/o female referred to PT with B hip pain. Of note, pt has PMH significant for TRUDY. She reports pain mostly with increased hip flexion positions seated at work especially. Examination shows decreased hip ROM, decreased hip/core strength, pain and impaired postural awareness. Recommend PT 2x/week however pt reports every other week would be better for transportation and work schedule. Therefore recommend PT 1x/week for 8 weeks to address impairments, implement HEP and optimize functional mobility. Frequency and Duration: The patient will be seen 1x/week for 8 weeks Short Term Goals: 4 weeks I with HEP Demonstrate I with seated movement snacks throughout the day while at work to decrease hip stiffness and pain Care Home Goals: 8 weeks I with HEP and self management of sx Pt will be able to sit > 60 min at work with pain < 3/10 Pt will be able to lift 1 year olf with pain < 3/10 Treatment Plan: Modalities to reduce pain, spasms and effusion. Manual therapy to restore motion and function. Therapeutic exercise to improve strength and flexibility. Neuromuscular re-education for posture and balance. Therapeutic activities to return to functional activities of daily living. Electronically signed by: Polly De La Cruz PT Please sign and return to therapist. Thank you for your referral.
--- NOTE | 2025-09-11 09:29 | MHC.PT.DC ---
[facility] [place] [facility] [place] [facility] [place] [facility] [address] Freddy Fagan [address] [facility] [phone] F: [phone] F: [phone] F: [phone] F: [phone] Physical Therapy Discharge Report Diagnosis: Pain in R hip Pain in L hip Juvenile idiopathic arthritis Date of Surgery: Date of Evaluation: 08/10/25 Date of Discharge: 09/11/25 Treatments to Date: 1 Cancellations to Date: 0 No Shows to Date: 0 Discharge Status: Patient Elected to Stop Discharge Summary: Pt did not f/u with appointments following initial evaluation and is therefore d/c at this time. Electronically signed by: Polly De La Cruz PT Please sign and return to therapist. Thank you for your referral.
== END 2025-09-11 09:30 | disposition home or self-care (01) ==
LOC: HO.PT 11:22
PROVIDERS: Visit Provider Internal Medicine Rheumatology
DX: M08.80 Other juvenile arthritis, unspecified site (principal); M25.552 Pain in left hip; M25.551 Pain in right hip
CPT/HCPCS: 97112; 97161